=== PATIENT | male | born 1970 | race Caucasian/White ===

== ENCOUNTER 2019-12-05 22:21 | Emergency (ER) | payer OTHER ==
[~2019-12-05] VITALS: Ht 180.3 cm; Wt 110.4 kg
[2019-12-05 23:46] LABS: HEMATOCRIT 42.8 % (39.0-50.0); HEMOGLOBIN 13.5 g/dl (14.0-18.0); IMMATURE GRANULOCYTES 0.4 % (0.0-5.0); MEAN CELL VOLUME 88.2 fL CALC (80.0-100.0); MEAN CORPUSCULAR HGB 27.8 pG CALC (26.0-32.0); MEAN CORPUSCULAR HGB CONC 31.5 g/dL CAL (32.0-36.0); NEUT# 6.91 thou/uL (1.82-7.42); RED BLOOD COUNT 4.85 mill/uL (4.70-6.10); RED CELL DISTRI WIDTH 13.9 % (11.5-15.5); URINE BLOOD DIPSTICK LARGE (NEGATIVE); URINE COLOR BROWN; URINE GLUCOSE - DIPSTICK NEGATIVE (NEGATIVE); URINE KETONE TRACE mg/dL (NEGATIVE); URINE LEUK ESTERASE NEGATIVE (NEGATIVE); URINE NITRITE - DIPSTICK NEGATIVE (Negative); URINE PROTEIN - DIPSTICK 100 mg/dL (NEG-TRACE); URINE SPECIFIC GRAVITY >=1.030; URINE UROBILINOGEN - DIPSTICK 0.2 E.U./dL (0.2)
[2019-12-06 00:01] LABS: URINE BILIRUBIN - DIPSTICK NEGATIVE (NEGATIVE)
[2019-12-06 00:03] LABS: URINE BACTERIA FEW hpf; URINE MUCUS FEW hpf (NONE-FEW); URINE RBC 50-100 RBC/hpf (0-5); URINE SQUAMOUS EPITHELIAL CELL FEW EPI/hpf (0-FEW)
[2019-12-06 00:09] LABS: ALBUMIN 4.2 g/dL (3.2-5.0); ALKALINE PHOSPHATASE 132 u/l (38-126); ANION GAP 12 (6-22 (CALC)); BILIRUBIN, TOTAL 0.3 mg/dL (0.0-1.4); BUN 16 mg/dL (9-20); BUN/CREATININE RATIO 22 (12-20 (CALC)); CARBON DIOXIDE 27 mmol/l (22-30); CHLORIDE 103 mmol/l (95-108); CREATININE 0.7 mg/dL (0.7-1.3); GFR > 60 ML/MIN (>=60 (CALC)); GFR FOR AFR.AMER. > 60 ML/MIN (>=60 (CALC)); POTASSIUM 3.9 mmol/l (3.5-5.1); SGOT/AST 23 u/l (17-59); SODIUM 137 mmol/l (137-146); TOTAL PROTEIN 7.2 g/dL (6.3-8.2)
[2019-12-06] MEDS ORDERED: TRAMADOL HYDROC50 MG PO (00:23)
[2019-12-06] MEDS ORDERED: BACTRIM DS1 TAB PO ×2 (00:23)
[2019-12-06] MEDS ORDERED: TAMSULOSIN0.4 MG PO ×2 (00:23)
[2019-12-06 02:15] VITALS: BP 112/66
[2019-12-06] MEDS ORDERED: LIPITOR40 M1 PO (02:19)
[2019-12-06] MEDS ORDERED: METFORMIN HCL500 M1 PO (02:20)
[2019-12-06] MEDS ORDERED: GLIMEPIRIDE2 MG PO (02:20)
[2019-12-06] MEDS ORDERED: ASPIRIN81 MG PO (02:21)
[2019-12-06] MEDS ORDERED: FISH OIL1000 MG PO (02:21)
[2019-12-06] MEDS ORDERED: TRADJENTA5 MG PO (02:23)
[2019-12-06] MEDS ORDERED: FARXIGA5 MG PO (02:23)
[2019-12-06] MEDS ORDERED: TRULICITY1.5 MG/0.5 IM (02:25)
[2019-12-07] MEDS ORDERED: BACTRIM DS1 TAB PO (10:22)
[2019-12-07] MEDS ORDERED: TAMSULOSIN0.4 MG PO (10:22)
== END 2019-12-06 00:50 | disposition home or self-care (01) | DRG 694 ==
LOC: ED 22:21
PROVIDERS: Family Medicine
DX: N13.2 Hydronephrosis with renal and ureteral calculous obstruction (principal); E11.9 Type 2 diabetes mellitus without complications; F17.210 Nicotine dependence, cigarettes, uncomplicated